=== PATIENT | female | born 1950 | race Caucasian/White ===

== ENCOUNTER 2017-02-28 12:22 | Inpatient (IN) | payer MEDICARE ==
[2017-02-28] VITALS (17 sets, daily range): BP systolic 101–154; BP diastolic 57–97
[~2017-02-28] VITALS: Ht 160 cm; Wt 51.9 kg
[2017-02-28] MEDS ORDERED: PANTOPRAZOLE 80 MG in SODIUM CHLORIDE 0.9% 50 ML IVPB ONE (12:28)
[2017-02-28] MEDS ORDERED: SODIUM CHLORIDE 0.9% 1,000 ML IV ONE (12:28)
[2017-02-28] MEDS ORDERED: SODIUM CHLORIDE FLUSH 10ML SYR IVF ONE (12:30)
[2017-02-28] MEDS ORDERED: CEFTRIAXONE PMX 1GM/50ML 50 ML IV ONE (12:30)
[2017-02-28] MEDS ORDERED: PANTOPRAZOLE 80 MG in SODIUM CHLORIDE 0.9% 100 ML IV SCH (12:45)
[2017-02-28] MEDS ORDERED: CEFTRIAXONE PMX 1GM/50ML 50 ML ONE (12:54)
[2017-02-28] MEDS ORDERED: PLEASE ENTER ALLERGIES MC SCH ×2 (13:00)
[2017-02-28] MEDS ORDERED: PLEASE ENTER HEIGHT AND WEIGHT MC SCH (13:00)
[2017-02-28 13:03] LABS: ASPARTATE AMINO TRANSFERASE 13 U/L (15-37); BLOOD UREA NITROGEN 55 mg/dL (7-18)
[2017-02-28 13:11] LABS: DIFF TOTAL CELLS COUNTED 100 CELL DIFF
[2017-02-28 13:12] LABS: VERIFY COUNTS? YES
[2017-02-28] MEDS ORDERED: ATEN25TA PO (13:12)
[2017-02-28] MEDS ORDERED: RIVA15TA PO (13:12)
[2017-02-28 13:13] LABS: OVALOCYTES 1+
[2017-02-28 13:14] LABS: POLYCHROMASIA 1+
[2017-02-28] MEDS ORDERED: ANTI INHIBITOR COAGULANT COMP IVPush ONE (13:30)
[2017-02-28] MEDS ORDERED: KETAMINE 10 MG/ML, 20ML ONE ×2 (13:58→14:27)
[2017-02-28] MEDS ORDERED: FURO-93 PO (14:12)
[2017-02-28] MEDS ORDERED: PANT40TA5 PO (14:13)
[2017-02-28] MEDS ORDERED: OCTREOTIDE 500 MCG in SODIUM CHLORIDE 0.9% 249 ML IV PRN (15:02)
[2017-02-28] MEDS ORDERED: OCTREOTIDE 100MCG/ML, 1ML (0.1MG/ML) IV ONE (15:30)
[2017-02-28] MEDS ORDERED: OCTREOTIDE 100MCG/ML, 1ML (0.1MG/ML) ONE (16:57)
[2017-02-28] MEDS ORDERED: ONDANSETRON 2MG/ML, 2ML ONE (17:08)
[2017-02-28] MEDS: OCTREOTIDE 500 MCG in SODIUM CHLORIDE 0.9% 249 ML IV SCH (17:11)
[2017-02-28] MEDS: PANTOPRAZOLE 80 MG in SODIUM CHLORIDE 0.9% 100 ML IV SCH (17:12)
[2017-02-28] MEDS ORDERED: PHYTONADIONE 10 MG in SODIUM CHLORIDE 0.9% 50 ML IV ONE (17:30)
[2017-02-28] MEDS ORDERED: OCTREOTIDE 50 MCG/ML, 1ML (0.05MG/ML) IVPush ONE (17:30)
[2017-02-28] MEDS ORDERED: PROMETHAZINE 25 MG/ML, 1ML IM PRN (17:30)
[2017-02-28] MEDS ORDERED: ONDANSETRON 2MG/ML, 2ML IVPush PRN (17:30)
[2017-02-28] MEDS ORDERED: LORazepam 2 MG/ML, 1ML IV PRN ×5 (17:30)
[2017-02-28] MEDS ORDERED: POTASSIUM CHLORIDE 20 MEQ, MAGNESIUM SULFATE 2 GM, THIAMINE 100 MG, MVI ADULT 10 ML, FO... IV SCH (18:00)
[2017-02-28] MEDS: SODIUM CHLORIDE 0.9% 1,000 ML IV SCH (20:00)
[2017-03-01] VITALS (7 sets, daily range): BP systolic 123–151; BP diastolic 76–92
[2017-03-01] MEDS: OCTREOTIDE 500 MCG in SODIUM CHLORIDE 0.9% 249 ML IV SCH ×3 (01:25→22:34)
[2017-03-01] MEDS: PANTOPRAZOLE 80 MG in SODIUM CHLORIDE 0.9% 100 ML IV SCH ×3 (01:25→14:49)
[2017-03-01] MEDS: SODIUM CHLORIDE 0.9% 1,000 ML IV SCH ×3 (02:24→18:20)
[2017-03-01 04:54] LABS: ASPARTATE AMINO TRANSFERASE 29 U/L (15-37); BLOOD UREA NITROGEN 49 mg/dL (7-18)
[2017-03-01 05:47] LABS: DIFF TOTAL CELLS COUNTED 100 CELL DIFF
[2017-03-01 05:50] LABS: ANISOCYTOSIS 1+; POLYCHROMASIA 1+; VERIFY COUNTS? YES
[2017-03-01] MEDS ORDERED: LORazepam 2 MG/ML, 1ML IVPush PRN (08:00)
[2017-03-01] MEDS ORDERED: EPINEPHRINE SYRINGE 0.1 MG/ML, 10ML ONE (08:49)
[2017-03-01] MEDS: ACETAMINOPHEN 325 MG TABLET PO PRN ×2 (16:46→20:59)
[2017-03-02] MEDS: ACETAMINOPHEN 325 MG TABLET PO PRN ×6 (01:01→23:30)
[2017-03-02 01:46] VITALS: BP 126/83
[2017-03-02] MEDS: PANTOPRAZOLE 80 MG in SODIUM CHLORIDE 0.9% 100 ML IV SCH ×3 (01:59→23:30)
[2017-03-02] MEDS: SODIUM CHLORIDE 0.9% 1,000 ML IV SCH ×3 (01:59→17:33)
[2017-03-02 03:41] LABS: BLOOD UREA NITROGEN 42 mg/dL (7-18)
[2017-03-02 07:03] VITALS: BP 137/73
[2017-03-02] MEDS: OCTREOTIDE 500 MCG in SODIUM CHLORIDE 0.9% 249 ML IV SCH (09:30)
[2017-03-02 13:53] VITALS: BP 146/89
[2017-03-02 20:18] VITALS: BP 152/102
[2017-03-03 01:10] VITALS: BP 137/87
[2017-03-03] MEDS: SODIUM CHLORIDE 0.9% 1,000 ML IV SCH (04:00)
[2017-03-03 05:02] LABS: BLOOD UREA NITROGEN 43 mg/dL (7-18)
[2017-03-03] MEDS: ACETAMINOPHEN 325 MG TABLET PO PRN (08:25)
[2017-03-03 08:30] VITALS: BP 132/90
[2017-03-03] MEDS: PANTOPRAZOLE 80 MG in SODIUM CHLORIDE 0.9% 100 ML IV SCH (09:09)
[2017-03-03] MEDS ORDERED: PANT40TA5 PO (09:59)
== END 2017-03-03 12:25 | disposition home or self-care (01) | DRG 377 ==
LOC: ED 14:32 → EDIP 14:58 → CCU 16:10 → 3NW 03-01 12:00 → DCLOUNGE 03-03 11:55
PROVIDERS: ADMIT Hospitalist; ATTEND Hospitalist
PROC: 30233L1 Transfusion of Nonautologous Fresh Plasma into Peripheral Vein, Percutaneous Approach (ICD-10-PCS; 2017-02-28)
PROC: 30233K1 Transfusion of Nonautologous Frozen Plasma into Peripheral Vein, Percutaneous Approach (ICD-10-PCS; 2017-02-28)
PROC: 3E0G8GC Introduction of Other Therapeutic Substance into Upper GI, Via Natural or Artificial Opening Endoscopic (ICD-10-PCS; 2017-02-28)
PROC: 0W3P8ZZ Control Bleeding in Gastrointestinal Tract, Via Natural or Artificial Opening Endoscopic (ICD-10-PCS; 2017-02-28)
PROC: 30233N1 Transfusion of Nonautologous Red Blood Cells into Peripheral Vein, Percutaneous Approach (ICD-10-PCS; principal; 2017-02-28 14:30)
DX: K26.4 Chronic or unspecified duodenal ulcer with hemorrhage (principal); N17.0 Acute kidney failure with tubular necrosis; D62 Acute posthemorrhagic anemia; D68.9 Coagulation defect, unspecified; D68.32 Hemorrhagic disorder due to extrinsic circulating anticoagulants; I85.00 Esophageal varices without bleeding; F10.10 Alcohol abuse, uncomplicated; I48.0 Paroxysmal atrial fibrillation; I12.9 Hypertensive chronic kidney disease with stage 1 through stage 4 chronic kidney disease, or unspecified chronic kidney disease; K74.60 Unspecified cirrhosis of liver; T45.515A Adverse effect of anticoagulants, initial encounter; N18.9 Chronic kidney disease, unspecified; Z79.01 Long term (current) use of anticoagulants; Z87.11 Personal history of peptic ulcer disease; Y92.89 Other specified places as the place of occurrence of the external cause; Z86.19 Personal history of other infectious and parasitic diseases; Z80.3 Family history of malignant neoplasm of breast; Z80.8 Family history of malignant neoplasm of other organs or systems; Z87.891 Personal history of nicotine dependence; Z88.0 Allergy status to penicillin; Z88.2 Allergy status to sulfonamides; Z88.5 Allergy status to narcotic agent
CPT/HCPCS: 36415; 80048; 80053; 80307; 83036; 83735; 84100; 85014; 85018; 85025; 85610; 86850; 86900; 86923; 87081; 93005; 96365; 96366; 96368; 99152; 99153; J0696; J2354; J2405; J3411; J3430; J3475; J3480; J7042; J7198; C9113; J7030; J7050; P9016; P9017

== ENCOUNTER 2020-01-14 01:37 | Inpatient (IN) | payer MEDICARE ==
[~2020-01-14] VITALS: Ht 160 cm; Wt 46.1 kg
[~2020-01-14 01:37] MED LIST: ATEN25TA PO; FURO-93 PO; PANT40TA5 PO; RIVA15TA PO
[2020-01-14] MEDS ORDERED: SODIUM CHLORIDE FLUSH 10ML SYR IVF ONE (02:00)
[2020-01-14 02:06] LABS: BASOPHILS # (AUTO) 0.04 x10^3/uL (0-0.1); BASOPHILS % (AUTO) 1 % (0-1); EOSINOPHILS # (AUTO) 0.16 x10^3/uL (0-0.4); EOSINOPHILS % (AUTO) 2 % (1-7); LYMPHOCYTES # (AUTO) 1.72 x10^3/uL (1-3.4); LYMPHOCYTES % (AUTO) 22 % (22-44); MD NO; MEAN CORPUSCULAR HEMOGLOBIN 32.8 pg (27.0-34.8); MEAN CORPUSCULAR HGB CONC 33.3 g/dL (32.4-35.8); MEAN CORPUSCULAR VOLUME 98.4 fL (80-100); MEAN PLATELET VOLUME 8.9 fL (7.4-10.4); MONOCYTES # (AUTO) 0.59 x10^3/uL (0.2-0.8); MONOCYTES % (AUTO) 8 % (2-9); NEUTROPHILS # (AUTO) 5.42 x10^3/uL (1.8-6.8); NEUTROPHILS % (AUTO) 68 % (42-75); PLATELET COUNT 249 x10^3/uL (130-400); RED BLOOD COUNT 4.14 x10^6/uL (3.82-5.3); RED CELL DISTRIBUTION WIDTH 14.6 % (9.6-15.2)
[2020-01-14 02:12] LABS: INTERNATIONAL NORMALIZED RATIO 0.93 (0.93-1.1); PROTHROMBIN TIME 9.8 Seconds (9.6-11.5)
[2020-01-14 02:14] LABS: ALBUMIN 3.8 g/dL (3.4-5.0); ANION GAP 11 mmol/L (5-15); CALCIUM 9.4 mg/dL (8.5-10.1); CHLORIDE 105 mmol/L (98-107)
[2020-01-14 02:20] LABS: ALANINE AMINOTRANSFERASE 18 U/L (12-78); ALKALINE PHOSPHATASE 90 U/L (45-117); BILIRUBIN,TOTAL 0.3 mg/dL (0.2-1.0); CREATININE 1.76 mg/dL (0.55-1.02); TOTAL PROTEIN 7.5 g/dL (6.4-8.2)
--- NOTE | 2020-01-14 02:39 | NUR ---
Pt sleeping in room, continues to deny pain or SOB when awake.
[2020-01-14] MEDS ORDERED: HEPARIN 25,000 UNITS/250ML PMX 250 ML ONE (02:52)
[2020-01-14] MEDS ORDERED: HEPARIN 5,000 UNITS/ML, 1ML ONE (02:53)
[2020-01-14] MEDS ORDERED: HEPARIN 5,000 UNITS/ML, 1ML IV ONE (03:00)
[2020-01-14] MEDS ORDERED: HEPARIN 25,000 UNITS/250ML PMX 250 ML IV PRN (03:00)
[2020-01-14] MEDS ORDERED: HYDROmorphone 1 MG/ML, 1ML INJ IV PRN (03:30)
[2020-01-14] MEDS ORDERED: ASPIRIN 325 MG TABLET EC PO ONE (03:30)
[2020-01-14] MEDS ORDERED: NITROGLYCERIN 0.4 MG/SPRAY SL PRN (03:30)
--- NOTE | 2020-01-14 04:04 | NUR ---
Report called to [facility].
[2020-01-14 04:28] VITALS: BP 134/86
[2020-01-14] MEDS ORDERED: NITROGLYCERIN 0.4 MG BOTTLE (25 TABS) SL PRN (04:30)
[2020-01-14] MEDS ORDERED: HEPARIN 5,000 UNITS/ML, 1ML IV PRN (04:30)
[2020-01-14] MEDS ORDERED: SODIUM CHLORIDE 0.9% 1,000 ML IV SCH ×2 (06:30→11:29)
[2020-01-14 07:42] VITALS: BP 132/88
[2020-01-14] MEDS: PANTOPRAZOLE 40MG TABLET PO SCH ×2 (08:25→21:28)
[2020-01-14] MEDS: SODIUM CHLORIDE 0.9% 1,000 ML IV SCH ×2 (08:26→16:17)
[2020-01-14] MEDS ORDERED: ATENOLOL 25 MG TABLET PO SCH (09:00)
[2020-01-14 09:28] LABS: CHOLESTEROL, TOTAL 184 mg/dL (140-239); TRIGLYCERIDES 89 mg/dL (50-200); VLDL CHOLESTEROL 18 mg/dL (0-25)
[2020-01-14 09:31] LABS: CHOL/HDL RATIO 2.9; HDL CHOL % 35 % (28-40); HDL CHOLESTEROL (DIRECT) 64 mg/dL (40-60); LDL CHOLESTEROL,CALCULATED 102 mg/dL (54-169); LDL/HDL RATIO 1.6 (0.5-3.0)
[2020-01-14] MEDS ORDERED: BIVALIRUDIN 250 MG ONE (10:00)
[2020-01-14] MEDS ORDERED: MIDAZOLAM 1 MG/ML, 5ML ONE (10:00)
[2020-01-14] MEDS ORDERED: FENTANYL PF 100 MCG/2ML ONE (10:00)
[2020-01-14] MEDS ORDERED: TICAGRELOR 90 MG TABLET ONE (10:00)
[2020-01-14] MEDS ORDERED: VERAPAMIL 2.5 MG/ML, 2ML ONE (10:00)
[2020-01-14] MEDS ORDERED: LIDOCAINE-MPF 1%, 5ML ONE (10:01)
[2020-01-14] MEDS ORDERED: HEPARIN 1,000 UNITS/ML, 10ML ONE (10:01)
[2020-01-14] MEDS ORDERED: CLOPIDOGREL 300 MG TABLET ONE (10:45)
[2020-01-14] MEDS ORDERED: BIVALIRUDIN 250 MG in SODIUM CHLORIDE 0.9% 50 ML IV SCH (11:29)
[2020-01-14] MEDS ORDERED: ACETAMINOPHEN 325 MG TABLET PO PRN (11:30)
[2020-01-14 12:32] VITALS: BP 125/84
[2020-01-14 21:23] VITALS: BP 120/77
[2020-01-14] MEDS: ATORVASTATIN 40 MG TABLET PO SCH (21:28)
[2020-01-14 22:12] LABS: CREATININE,URINE RANDOM 37.4 mg/dL
[2020-01-15 01:32] VITALS: BP 126/81
[2020-01-15 04:45] LABS: BASOPHILS # (AUTO) 0.03 x10^3/uL (0-0.1); BASOPHILS % (AUTO) 0 % (0-1); EOSINOPHILS # (AUTO) 0.22 x10^3/uL (0-0.4); EOSINOPHILS % (AUTO) 3 % (1-7); LYMPHOCYTES # (AUTO) 0.99 x10^3/uL (1-3.4); LYMPHOCYTES % (AUTO) 13 % (22-44); MD NO; MEAN CORPUSCULAR HEMOGLOBIN 32.2 pg (27.0-34.8); MEAN CORPUSCULAR HGB CONC 32.9 g/dL (32.4-35.8); MEAN PLATELET VOLUME 8.9 fL (7.4-10.4); MONOCYTES # (AUTO) 0.86 x10^3/uL (0.2-0.8); MONOCYTES % (AUTO) 11 % (2-9); NEUTROPHILS # (AUTO) 5.63 x10^3/uL (1.8-6.8); NEUTROPHILS % (AUTO) 73 % (42-75); PLATELET COUNT 198 x10^3/uL (130-400); RED BLOOD COUNT 3.82 x10^6/uL (3.82-5.3); RED CELL DISTRIBUTION WIDTH 14.3 % (9.6-15.2)
[2020-01-15 04:48] LABS: ANION GAP 9 mmol/L (5-15); CALCIUM 8.6 mg/dL (8.5-10.1); CHLORIDE 112 mmol/L (98-107); CREATININE 1.41 mg/dL (0.55-1.02)
[2020-01-15] MEDS: ASPIRIN 81 MG TABLET EC PO SCH (05:59)
[2020-01-15] MEDS ORDERED: ASPIRIN 325 MG TABLET EC PO SCH (06:00)
[2020-01-15 06:34] VITALS: BP 114/69
[2020-01-15] MEDS: LISINOPRIL 5 MG TABLET PO SCH (08:37)
[2020-01-15] MEDS: CLOPIDOGREL 75 MG TABLET PO SCH (08:37)
[2020-01-15] MEDS: PANTOPRAZOLE 40MG TABLET PO SCH ×2 (08:38→20:03)
[2020-01-15 14:21] VITALS: BP 98/65
[2020-01-15 18:16] VITALS: BP 130/81
[2020-01-15] MEDS: ATORVASTATIN 40 MG TABLET PO SCH (20:03)
[2020-01-15 20:12] VITALS: BP 116/77
[2020-01-16 01:27] VITALS: BP 117/72
[2020-01-16 05:23] LABS: ANION GAP 7 mmol/L (5-15); CALCIUM 9.1 mg/dL (8.5-10.1); CHLORIDE 113 mmol/L (98-107)
[2020-01-16 05:24] LABS: CREATININE 1.58 mg/dL (0.55-1.02)
[2020-01-16 05:54] LABS: BASOPHILS # (AUTO) 0.04 x10^3/uL (0-0.1); BASOPHILS % (AUTO) 1 % (0-1); EOSINOPHILS # (AUTO) 0.28 x10^3/uL (0-0.4); EOSINOPHILS % (AUTO) 4 % (1-7); LYMPHOCYTES # (AUTO) 1.08 x10^3/uL (1-3.4); LYMPHOCYTES % (AUTO) 16 % (22-44); MD NO; MEAN CORPUSCULAR HEMOGLOBIN 32.4 pg (27.0-34.8); MEAN CORPUSCULAR VOLUME 98.3 fL (80-100); MEAN PLATELET VOLUME 9.2 fL (7.4-10.4); MONOCYTES # (AUTO) 0.96 x10^3/uL (0.2-0.8); MONOCYTES % (AUTO) 14 % (2-9); NEUTROPHILS # (AUTO) 4.51 x10^3/uL (1.8-6.8); NEUTROPHILS % (AUTO) 66 % (42-75); PLATELET COUNT 182 x10^3/uL (130-400); RED BLOOD COUNT 3.78 x10^6/uL (3.82-5.3); RED CELL DISTRIBUTION WIDTH 14.5 % (9.6-15.2)
[2020-01-16] MEDS: ASPIRIN 81 MG TABLET EC PO SCH (06:08)
[2020-01-16 06:40] VITALS: BP 116/72
[2020-01-16] MEDS: LISINOPRIL 5 MG TABLET PO SCH (08:59)
[2020-01-16] MEDS: CLOPIDOGREL 75 MG TABLET PO SCH (08:59)
[2020-01-16] MEDS ORDERED: METOPROLOL SUCCINATE 25 MG TAB.ER.24H PO SCH ×2 (09:00→18:00)
[2020-01-16] MEDS: PANTOPRAZOLE 40MG TABLET PO SCH (09:00)
[2020-01-16 12:47] VITALS: BP 125/78
[2020-01-16] MEDS ORDERED: CLOP75TA PO (12:50)
[2020-01-16] MEDS ORDERED: METO25TA91 PO (12:50)
[2020-01-16] MEDS ORDERED: ASPI81TA45 PO (12:50)
[2020-01-16] MEDS ORDERED: LISI5TAB7 PO (12:50)
[2020-01-16] MEDS ORDERED: ATOR40TA78 PO (12:50)
[2020-01-16] MEDS ORDERED: NITR0.4T28 SL (12:50)
[2020-01-17] MEDS ORDERED: COLC0.6T37 PO (10:27)
== END 2020-01-16 14:12 | disposition home or self-care (01) | DRG 246 ==
LOC: ED 02:32 → EDIP 03:49 → 5SO 04:05
PROVIDERS: ATTEND Internal Medicine
PROC: 027135Z Dilation of Coronary Artery, Two Arteries with Two Drug-eluting Intraluminal Devices, Percutaneous Approach (ICD-10-PCS; principal; 2020-01-14)
PROC: 4A023N7 Measurement of Cardiac Sampling and Pressure, Left Heart, Percutaneous Approach (ICD-10-PCS; 2020-01-14)
PROC: B211YZZ Fluoroscopy of Multiple Coronary Arteries using Other Contrast (ICD-10-PCS; 2020-01-14)
DX: I21.4 Non-ST elevation (NSTEMI) myocardial infarction (principal); I50.43 Acute on chronic combined systolic (congestive) and diastolic (congestive) heart failure; E87.2 Acidosis; I13.0 Hypertensive heart and chronic kidney disease with heart failure and stage 1 through stage 4 chronic kidney disease, or unspecified chronic kidney disease; N18.3 Chronic kidney disease, stage 3 (moderate); Z88.2 Allergy status to sulfonamides; E78.5 Hyperlipidemia, unspecified; I25.10 Atherosclerotic heart disease of native coronary artery without angina pectoris; I27.20 Pulmonary hypertension, unspecified; Z88.0 Allergy status to penicillin; Z88.5 Allergy status to narcotic agent; Z87.891 Personal history of nicotine dependence
CPT/HCPCS: 36415; 71045; 76770; 80048; 80053; 80061; 82570; 83880; 84300; 84484; 85025; 85520; 85610; 85730; 93005; 93306; 93458; 96374; 99156; 99157; C1769; C1894; C9600; G0378; J0583; J1644; J2250; J3010; C1725; C1874; C1887; J7030; Q9967

== ENCOUNTER 2020-01-17 09:57 | Emergency (ER) | payer MEDICARE ==
[~2020-01-17] VITALS: Ht 157.5 cm; Wt 43.8 kg
[~2020-01-17 09:57] MED LIST changes: +ASPI81TA45 PO; +ATOR40TA78 PO; +CLOP75TA PO; +LISI5TAB7 PO; +METO25TA91 PO; +NITR0.4T28 SL
[2020-01-17] MEDS ORDERED: COLC0.6T37 PO (10:27)
[2020-01-17] MEDS ORDERED: ASPIRIN 81 MG TABLET CHEW PO ONE (10:30)
[2020-01-17] MEDS ORDERED: SODIUM CHLORIDE FLUSH 10ML SYR IVF ONE (10:30)
[2020-01-17] MEDS ORDERED: ONDANSETRON 2MG/ML, 2ML IVPush ONE (10:30)
[2020-01-17] MEDS ORDERED: ONDANSETRON 2MG/ML, 2ML ONE (10:34)
[2020-01-17] MEDS ORDERED: NITROGLYCERIN SINGLE TAB 0.4 MG SL ONE (10:34)
[2020-01-17] MEDS ORDERED: ASPIRIN 81 MG TABLET CHEW ONE (10:34)
[2020-01-17] MEDS: NITROGLYCERIN SINGLE TAB 0.4 MG SL PRN ×2 (10:43→10:50)
--- NOTE | 2020-01-17 10:46 | NUR ---
AT BEDSIDE- PLACED ON DOOR PATCHER, IV STARTED AND LABS DRAWN, NITRO X1 SL GIVEN ALONG WITH OTHER ORDERED MEDICATIONS. PT'S BP IMPROVED S/P 1 SL NITRO.
--- NOTE | 2020-01-17 10:51 | NUR ---
PT STILL HAVING CP, HOWEVER PT STATING IT IS SUBSIDING. 2ND SL NITRO GIVEN.
--- NOTE | 2020-01-17 10:58 | NUR ---
TUBED BLOODWORK TO LAB
--- NOTE | 2020-01-17 11:06 | NUR ---
Spoke to Dr. Larios regarding Pt's pain level and BP.
--- NOTE | 2020-01-17 11:09 | NUR ---
Pt states that her CP is now at a 1.
[2020-01-17] MEDS ORDERED: ALUMINUM/MAG/SIMETHICONE 30 ML UDC ONE (11:15)
[2020-01-17] MEDS ORDERED: PANTOPRAZOLE 20MG TABLET ONE (11:15)
[2020-01-17 11:23] LABS: MEAN CORPUSCULAR HEMOGLOBIN 32.9 pg (27.0-34.8); MEAN CORPUSCULAR HGB CONC 33.6 g/dL (32.4-35.8); MEAN CORPUSCULAR VOLUME 97.8 fL (80-100); MEAN PLATELET VOLUME 9.2 fL (7.4-10.4); PLATELET COUNT 211 x10^3/uL (130-400); RED BLOOD COUNT 4.02 x10^6/uL (3.82-5.3); RED CELL DISTRIBUTION WIDTH 13.9 % (9.6-15.2)
[2020-01-17 11:25] LABS: ANION GAP 9 mmol/L (5-15); CALCIUM 9.8 mg/dL (8.5-10.1); CHLORIDE 109 mmol/L (98-107)
[2020-01-17 11:28] LABS: CREATININE 1.69 mg/dL (0.55-1.02)
[2020-01-17] MEDS ORDERED: ALUMINUM/MAG/SIMETHICONE 30 ML UDC PO PRN (11:30)
[2020-01-17] MEDS ORDERED: PANTOPRAZOLE 40MG TABLET PO ONE (11:30)
[2020-01-17 11:37] LABS: BASOPHILS # (AUTO) 0.01 x10^3/uL (0-0.1); BASOPHILS % (AUTO) 0 % (0-1); EOSINOPHILS # (AUTO) 0.02 x10^3/uL (0-0.4); EOSINOPHILS % (AUTO) 0 % (1-7); LYMPHOCYTES # (AUTO) 0.61 x10^3/uL (1-3.4); LYMPHOCYTES % (AUTO) 6 % (22-44); MD SCAN; MONOCYTES # (AUTO) 0.41 x10^3/uL (0.2-0.8); MONOCYTES % (AUTO) 4 % (2-9); NEUTROPHILS # (AUTO) 9.87 x10^3/uL (1.8-6.8); NEUTROPHILS % (AUTO) 90 % (42-75)
--- NOTE | 2020-01-17 12:52 | NUR ---
Pt comfortable and is not having pain at this time. Pt states that she wants to go home.
--- NOTE | 2020-01-17 13:13 | NUR ---
dr araujo spoke with dr heather castañeda
--- NOTE | 2020-01-17 14:12 | NUR ---
DR TORIBIO AT BEDSIDE TO RE-EVAL PT.
--- NOTE | 2020-01-17 14:24 | NUR ---
MD discussed plan with Pt to stay in the hospital for further monitoring. Pt refused and stated that she wanted to go home. MD discussed risks of going home AMA. Pt verbalized understanding. GCS 15. Pt not in any distress and stable. AMA form discussed and signed by Pt.
[2020-01-17 14:42] VITALS: BP 154/87
== END 2020-01-17 14:45 | disposition home or self-care (01) ==
LOC: ED 10:39
DX: R07.89 Other chest pain (principal); R11.10 Vomiting, unspecified; I25.2 Old myocardial infarction; I10 Essential (primary) hypertension
CPT/HCPCS: 36415; 71045; 80048; 82040; 84484; 85025; 93005; 96374; 99291; J2405; 99285